=== PATIENT | female | born 1930 | race Caucasian/White ===

== ENCOUNTER 2018-02-28 22:30 | Emergency (ER) | payer OTHER ==
[~2018-02-28] VITALS: Ht 149.9 cm; Wt 45.8 kg
--- NOTE | 2018-02-28 23:00 | NUR ---
CAME IN FROM [facility] DUE TO RIGHT SHOPULDER PAIN AFTER A WITNESSED FALL AFTER A SYNCOPAY EPISODE.AWAKE,ALERT STILL WITH PAIN OF RIGHT SHOULDER RADIATING TO HER ARM PER PATIENT.
[2018-02-28 23:32] LABS: BASOPHILS % (AUTO) 0.6 % (0.0-2.0); EOSINOPHILS % (AUTO) 0.8 % (0.0-6.0); HEMATOCRIT 37 % (33-45); HEMOGLOBIN 12.5 g/dL (11.5-14.8); LYMPHOCYTES # (AUTO) 2.3 /CMM (0.8-4.8); LYMPHOCYTES % (AUTO) 49.9 % (20.0-44.0); MEAN CORPUSCULAR HGB CONC 34 g/dl (31.0-36.0); MEAN CORPUSCULAR VOLUME 104 fL (82-100); MONOCYTES # (AUTO) 0.4 /CMM (0.1-1.30); MONOCYTES % (AUTO) 8.4 % (2.0-12.0); NEUTROPHILS # (AUTO) 1.9 /CMM (1.8-8.9); NEUTROPHILS % (AUTO) 40.3 % (43.0-81.0); PLATELET COUNT (AUTO) 191 /CMM (150-450); RED BLOOD CELL COUNT(AUTO) 3.53 MIL/uL (4.0-5.2); WHITE BLOOD COUNT (AUTO) 4.7 K/uL (4.3-11.0)
--- NOTE | 2018-02-28 23:35 | NUR ---
TAKEN TO RADIOLOGY FOR CT HEAD,CERVICAL SPINE, CHEST XRAY,X RAY OF RIGHT SHOULDER
--- NOTE | 2018-02-28 23:45 | NUR ---
BACK FRON RADIOLOGY DEPT.
[2018-02-28 23:47] LABS: CALCIUM, SERUM 9.5 mg/dL (8.5-10.1); CARBON DIOXIDE 28 mmol/L (21-32); CHLORIDE 106 mmol/L (98-107); CREATININE 0.8 mg/dL (0.6-1.3); GLUCOSE 145 mg/dL (74-106); POTASSIUM 4.1 mmol/L (3.5-5.1); SODIUM SERUM 142 mmol/L (136-145); UREA NITROGEN, BLOOD 24 mg/dL (7-18)
[2018-02-28 23:53] LABS: ALANINE AMINOTRANSFERASE 14 U/L (12-78); ALBUMIN 3.4 g/dL (3.4-5.0); ALKALINE PHOSPHATASE 56 U/L (46-116); ASPARTATE AMINOTRANSFERASE 15 U/L (15-37); BILIRUBIN,DIRECT 0.1 mg/dL (0.0-0.2); BILIRUBIN,TOTAL 0.3 mg/dL (0.2-1.0)
[2018-02-28] MEDS ORDERED: MORPHINE SULFATE INJ 4 MG/ML DISP.SYRIN ONE (23:53)
[2018-02-28] MEDS ORDERED: ONDANSETRON HCL/PF 4 MG/2 ML VIAL ONE (23:54)
[2018-03-01] MEDS ORDERED: ONDANSETRON HCL/PF 4 MG/2 ML VIAL IV ONE
[2018-03-01] MEDS ORDERED: MORPHINE SULFATE INJ 2 MG/ML DISP.SYRIN IV ONE
--- NOTE | 2018-03-01 00:10 | NUR ---
[facility] CALLED .
--- NOTE | 2018-03-01 00:11 | NUR ---
PER JAYANT SOLIMAN [facility] DR[facility] ADAMS, U RN REPORT [phone]
--- NOTE | 2018-03-01 01:51 | NUR ---
PATIENT FOR TRANSFER TO [facility],REPORT GIVEN TO PULMONOLOGIST(GABY)
[2018-03-01 02:08] VITALS: BP 130/81
--- NOTE | 2018-03-01 02:10 | NUR ---
PATIENT TRANSFERED TO [facility] VIA [facility].
== END 2018-03-01 02:07 ==
LOC: ER 22:35
DX: S42.291A Other displaced fracture of upper end of right humerus, initial encounter for closed fracture (principal); R55 Syncope and collapse; F03.90 Unspecified dementia, unspecified severity, without behavioral disturbance, psychotic disturbance, mood disturbance, and anxiety; I10 Essential (primary) hypertension; R41.3 Other amnesia; F32.9 Major depressive disorder, single episode, unspecified; E03.9 Hypothyroidism, unspecified; W18.39XA Other fall on same level, initial encounter; Y93.89 Activity, other specified; Y92.89 Other specified places as the place of occurrence of the external cause; Y99.8 Other external cause status
CPT/HCPCS: 36415 ×2; 70450; 71045; 72125; 73030; 80048; 80076; 84484; 85025; 85730; 93005; 96374 ×2; 99285; A4606; G0480; J2270; J2405; Z7610